=== PATIENT | male | born 1985 | race Caucasian/White ===

== ENCOUNTER 2018-04-10 13:56 | Emergency (ER) | payer SELFPAY ==
[~2018-04-10] VITALS: Ht 195.6 cm; Wt 90.0 kg
[2018-04-10 14:06] VITALS: BP 144/75; PULSE 64; RESP 20; TEMP 98.7; O2SAT 99
[2018-04-10] MEDS ORDERED: SODIUM CHLOR 0.9% 1000 ML INJ 1,000 ML IV ONE (14:24)
[2018-04-10] MEDS ORDERED: KETOROLAC TROMETHAMINE 30 MG/ML (IVP) VIAL IVP ONE (14:30)
[2018-04-10] MEDS ORDERED: PROCHLORPERAZINE INJ 10 MG/2 ML VIAL IVP ONE (14:30)
[2018-04-10] MEDS ORDERED: SODIUM CHLORIDE 0.9% FLUSH 10 ML FLUSH IVF PRN (14:30)
--- NOTE | 2018-04-10 15:03 | RADRPT ---
EXAM DATE/TIME: 04/10/2018 14:42 [place] COMPARISON: No previous studies available for comparison. INDICATIONS : Cephalgia. RADIATION DOSE: 46.97 CTDIvol (mGy) MEDICAL HISTORY : None SURGICAL HISTORY : None. ENCOUNTER: Initial ACUITY: 1 week PAIN SCALE: 4/10 LOCATION: Bilateral cranial TECHNIQUE: Multiple contiguous axial images were obtained of the head. Using automated exposure control and adj ustment of the mA and/or kV according to patient size, radiation dose was kept as low as reasonably a chievable to obtain optimal diagnostic quality images. DICOM format image data is available electro nically for review and comparison. FINDINGS: CEREBRUM: The ventricles are normal for age. No evidence of midline shift, mass lesion, hemorrhage or acute in farction. No extra-axial fluid collections are seen. Large cavum septum pellucidum POSTERIOR FOSSA: The cerebellum and brainstem are intact. The 4th ventricle is midline. The cerebellopontine angle i s unremarkable. EXTRACRANIAL: The visualized portion of the orbits is intact. SKULL: The calvaria is intact. No evidence of skull fracture. CONCLUSION: Negative for acute process Kranthi Campuzano MD FACR on April 10, 2018 at 14:59 Board Certified Radiologist. This report was verified electronically.
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
[2018-04-10 15:08] VITALS: O2SAT 99
[2018-04-10] MEDS ORDERED: traMADol HCL 50 MG TAB PO ONE (16:15)
== END 2018-04-10 16:32 | disposition home or self-care (01) ==
LOC: NEPD 13:56
DX: R51 Headache (principal); R11.0 Nausea; R42 Dizziness and giddiness; Z72.0 Tobacco use; Z87.820 Personal history of traumatic brain injury
CPT/HCPCS: 70450; 96374; 96375; 99284; J0780; J1885; J7030